=== PATIENT | male | born 1980 | race American Indian/Alaskan Native ===

== ENCOUNTER 2016-06-24 17:04 | Emergency (ER) | payer MEDICAID, OTHER ==
[2016-06-24 17:23] VITALS: BP 140/76
--- NOTE | 2016-06-24 18:10 | EDM.PDOC ---
[id number] 4d LEFT LEG INJURY, FELL OVER Time Seen by Provider: 06/24/16 18:00 Source: Reports: Patient, Family History Limitations: Reports: No limitations - History of Present Illness INITIAL COMMENTS - FREE TEXT/NARRATIVE: 35-year-old otherwise healthy male was standing on a chair when it broke in his left leg went through the chair and he sustained trauma to the anterior aspect of the lower leg. He is having difficulty ambulating, he's had some anterior swelling and some significant pain radiating from the foot to the anterior knee. There is superficial abrasions and some early bruising and swelling. He is concerned he may have "broken my leg". No other injury. Occurred When: just prior to arrival Occurred Where: home Method of Injury: direct blow, fall Severity: mild Pain/Injury Location: Reports: lower extremity, left Consciousness: Reports: no loss of consciousness Associated Symptoms: Reports: denies other symptoms Allergies/ADRs: Allergies No Known Allergies Allergy (Verified 06/24/16 17:22) Home Medications: Ambulatory Orders Albuterol [Proventil HFA] 2 puff IN BID 06/24/16 [Confirmed 06/24/16] FLUoxetine [PROzac] 20 mg PO DAILY 06/24/16 [Confirmed 06/24/16] Pantoprazole [Protonix] 40 mg PO DAILY 06/24/16 [Confirmed 06/24/16] traMADol [Take Home: traMADol 50 MG, 4 Tab Pack] 50 mg PO DAILY PRN 06/24/16 [ Confirmed 06/24/16] Past Medical History Gastrointestinal History: Reports: GERD Musculoskeletal History: Reports: Fracture Neurological History: Reports: TIA Psychiatric History: Reports: Anxiety, Depression - Infectious Disease History Infectious Disease History: Reports: Chicken pox - Past Surgical History GI Surgical History: Reports: Polypectomy Social & Family History - Tobacco Use Smoking Status *Q: Current Every Day Smoker Years of Tobacco use: 20 Packs/Tins Daily: 1 Second Hand Smoke Exposure: No - Caffeine Use Caffeine Use: Reports: Soda - Alcohol Use Days Per Week of Alcohol Use: 0 - Recreational Drug Use Recreational Drug Use: No Recreational Drug Type: Reports: Marijuana/Hashish Recreational Drug Use Frequency: Daily Review of Systems - Review of Systems Review Of Systems: See Below Constitutional: Denies: fever Respiratory: Reports: No Symptoms Cardiovascular: Reports: no symptoms Skin: Reports: bruising, other (Left arguelles abrasion) Neurological: Reports: No Symptoms Psychiatric: Reports: no symptoms Trauma Exam - Physical Exam Exam: See Below Exam Limited By: No limitations General Appearance: Reports: alert, no apparent distress Head: Reports: atraumatic Respiratory Exam: Reports: no respiratory distress Extremities: Reports: other (Exam is otherwise limited to the left lower leg. He has an abrasion along the anterior arguelles, some slight swelling and some early bruising over the lower anterior arguelles. No crepitus or deformity) Course - Vital Signs Last Recorded V/S: Last Vital Signs Temp 98.5 F 06/24/16 17:28 Pulse 83 06/24/16 17:28 Resp 20 06/24/16 17:28 BP 140/76 06/24/16 17:28 Pulse Ox 97 06/24/16 17:28 - Orders/Labs/Meds Orders: Active Orders 24 hr Category Date Time Status Tibia Fibula Lt [CR] Stat Exams 06/24/16 17:59 Taken DME for Discharge [COMM] Stat Oth 06/24/16 18:26 Ordered - Re-Assessments/Exams Free Text/Narrative Re-Assessment/Exam: 06/24/16 18:12 An x-ray of the left tib-fib was obtained. 06/24/16 18:27 X-ray was normal. Patient's tetanus status is current. A four-inch Ron wrap was applied to the lower leg to support him he was fitted with crutches since he was having difficulty with ambulation. This injury should improve rapidly but he can recheck in 5-7 days if not improving satisfactorily. Departure - Departure Time of Disposition: 18:46 Disposition: Home, Self-Care 01 Condition: good Clinical Impression: Contusion of lower leg, left Qualifiers: Encounter type: initial encounter Qualified Code(s): S80.12XA - Contusion of left lower leg, initial encounter Instructions: Contusion Referrals: Christin Cisneros NP [Primary Care Provider] - Forms: ED Department Discharge Care Plan Goals: Wrap leg for comfort, cold compresses or ice 20 minutes an hour and elevation would help for the first couple of days. Use crutches for the first day or two but ambulate as soon as possible and if still unable to ambulate without crutches in 5-6 days recheck with your regular doctor. Ibuprofen or naproxen will help. - My Orders Last 24 Hours: My Active Orders 06/24/16 17:59 Tibia Fibula Lt [CR] Stat 06/24/16 18:26 DME for Discharge [COMM] Stat - Assessment/Plan Last 24 Hours: My Active Orders 06/24/16 17:59 Tibia Fibula Lt [CR] Stat 06/24/16 18:26 DME for Discharge [COMM] Stat
--- NOTE | 2016-06-25 09:35 | CR ---
Tibia Fibula Lt HISTORY: Injury. COMPARISON: None FINDINGS: No fracture or bony destructive process seen. Impression: Negative left tibia and fibula.
== END 2016-06-24 18:46 | disposition home or self-care (01) ==
LOC: JP.ED 17:04
DX: S80.12XA Contusion of left lower leg, initial encounter (principal); F17.210 Nicotine dependence, cigarettes, uncomplicated; K21.9 Gastro-esophageal reflux disease without esophagitis; F41.8 Other specified anxiety disorders; Z79.899 Other long term (current) drug therapy; W07.XXXA Fall from chair, initial encounter
CPT/HCPCS: 73590-26-LT; 73590-LT; 99282; 99284

== ENCOUNTER 2016-08-31 22:03 | Emergency (ER) | payer MEDICAID, OTHER ==
[2016-08-31 22:21] VITALS: BP 129/70
--- NOTE | 2016-08-31 23:05 | EDM.PDOC ---
[id number]: COUGH,CHEST AND HEAD HURTS Time Seen by Provider: 08/31/16 22:30 Source of Information: Reports: Patient, Family History Limitations: Reports: No Limitations - History of Present Illness INITIAL COMMENTS - FREE TEXT/NARRATIVE: 36-year-old male with cough, nasal congestion, left-sided chest discomfort with coughing, headache and generalized malaise for the past 3 days. Possible intermittent fevers but none at this time. No significant shortness of breath. Onset: Gradual (Over 4 days) throat and chest Pain Score (Numeric/FACES): 8 - Related Data Allergies Allergy/AdvReac Type Severity Reaction Status Date / Time No Known Allergies Allergy Verified 08/31/16 22:24 Home Meds: Home Meds Albuterol [Proventil HFA] 2 puff IN BID 06/24/16 [History] Pantoprazole [ProTONIX] 40 mg PO DAILY 06/24/16 [History] traMADol [Take Home: traMADol 50 MG, 4 Tab Pack] 50 mg PO DAILY PRN 06/24/16 [ History] Past Medical History Respiratory History: Reports: Asthma Gastrointestinal History: Reports: GERD Musculoskeletal History: Reports: Fracture Neurological History: Reports: TIA Psychiatric History: Reports: Anxiety, Depression - Infectious Disease History Infectious Disease History: Reports: Chicken Pox - Past Surgical History GI Surgical History: Reports: Polypectomy Social & Family History - Tobacco Use Smoking Status *Q: Current Every Day Smoker Years of Tobacco use: 20 Packs/Tins Daily: 0.5 Second Hand Smoke Exposure: Yes - Caffeine Use Caffeine Use: Reports: None - Alcohol Use Days Per Week of Alcohol Use: 0 - Recreational Drug Use Recreational Drug Use: No Recreational Drug Type: Reports: Marijuana/Hashish Recreational Drug Use Frequency: Daily ED ROS GENERAL - Review of Systems Review Of Systems: See Below Constitutional: Reports: Malaise HEENT: Reports: Rhinitis (Persistent rhinitis, blowing his nose), Throat Pain ( Scratching) Respiratory: Reports: Wheezing, Cough. Denies: Shortness of Breath, Sputum Cardiovascular: Reports: No Symptoms GI/Abdominal: Denies: Nausea, Vomiting Musculoskeletal: Reports: Muscle Pain (Generalized) Skin: Reports: Other (Been treated for a rash on his hands) ED EXAM, GENERAL - Physical Exam Exam: See Below Exam Limited By: No Limitations General Appearance: Alert, No Apparent Distress Eye Exam: Bilateral Eye: Normal Inspection Ears: Normal TMs Throat/Mouth: Normal Inspection, Normal Oropharynx Respiratory/Chest: No Respiratory Distress, Wheezing (A few expiratory wheezes are heard with some rales when coughing bilaterally) Course - Vital Signs Last Recorded V/S: Last Vital Signs Temp 97.7 F 08/31/16 22:23 Pulse 92 08/31/16 22:23 Resp 16 08/31/16 22:23 BP 129/70 08/31/16 22:23 Pulse Ox 95 08/31/16 22:23 - Orders/Labs/Meds Orders: Active Orders 24 hr Category Date Time Status Chest 2V [CR] Routine Exams 08/31/16 22:39 Taken - Re-Assessments/Exams Free Text/Narrative Re-Assessment/Exam: 08/31/16 23:03 A two-view chest x-ray was obtained which was negative. Explained to the patient this is a viral bronchitis, however we can treat with Robitussin-AC along with Tessalon Perles. Antibiotics will not help. I also wrote him a note for work tomorrow. He should recheck in 2-3 days if not improving satisfactorily. Departure - Departure Time of Disposition: 23:12 Disposition: Home, Self-Care 01 Condition: good Clinical Impression: Viral URI with cough - Discharge Information Instructions: Acute Bronchitis, [id number] Referrals: PCP,None [Primary Care Provider] - Forms: ED Department Discharge Care Plan Goals: Use cough medicine as prescribed. Ibuprofen or naproxen will help as well. Rest the next 1 to 2 days and recheck in 2-3 days if not improving satisfactorily. - My Orders Last 24 Hours: My Active Orders 08/31/16 22:39 Chest 2V [CR] Routine - Assessment/Plan Last 24 Hours: My Active Orders 08/31/16 22:39 Chest 2V [CR] Routine
--- NOTE | 2016-09-01 09:37 | CR ---
Chest 2V FINDINGS: The heart and vascular structures are normal in appearance. No infiltrates or effusions ar e demonstrated. The skeletal structures are unremarkable. IMPRESSION: Negative exam.
== END 2016-08-31 23:14 | disposition home or self-care (01) ==
LOC: JP.ED 22:03
DX: J06.9 Acute upper respiratory infection, unspecified (principal); J45.909 Unspecified asthma, uncomplicated; K21.9 Gastro-esophageal reflux disease without esophagitis; F17.210 Nicotine dependence, cigarettes, uncomplicated; Z79.899 Other long term (current) drug therapy; Z98.890 Other specified postprocedural states
CPT/HCPCS: 71020; 71020-26; 99283; 99284

== ENCOUNTER 2016-09-19 18:43 | Emergency (ER) | payer MEDICAID ==
[2016-09-19 19:35] VITALS: BP 117/71
[2016-09-19] MEDS ORDERED: cefTRIAXone 500 MG, Lidocaine 1% 1 ML IM ONE ×2 (20:43)
--- NOTE | 2016-09-19 21:18 | EDM.PDOC ---
ED HPI GENERAL MEDICAL PROBLEM - General Chief Complaint: Genitourinary Problem Stated Complaint: STD CHECK Time Seen by Provider: 09/19/16 20:22 Source of Information: Reports: Patient History Limitations: Reports: No Limitations - History of Present Illness INITIAL COMMENTS - FREE TEXT/NARRATIVE: This gentleman comes in with his female partner for STD testing. He started noticing a yellow urethral discharge yesterday. He's not complaining of any kind of pain. His partner denies any complaints. - Related Data Allergies Allergy/AdvReac Type Severity Reaction Status Date / Time No Known Allergies Allergy Verified 08/31/16 22:24 Home Meds: Home Meds Albuterol [Proventil HFA] 2 puff IN BID 06/24/16 [History] Pantoprazole [ProTONIX] 40 mg PO DAILY 06/24/16 [History] traMADol [Take Home: traMADol 50 MG, 4 Tab Pack] 50 mg PO DAILY PRN 06/24/16 [ History] Cetirizine [ZyrTEC] 09/19/16 [History] Hydrocortisone [Proctosol-HC] 09/19/16 [History] Sertraline [Zoloft] 09/19/16 [History] Past Medical History - Past Health History Medical/Surgical History: Denies Medical/Surgical History Respiratory History: Reports: Asthma Gastrointestinal History: Reports: GERD Musculoskeletal History: Reports: Fracture Neurological History: Reports: TIA Psychiatric History: Reports: Anxiety, Depression - Infectious Disease History Infectious Disease History: Reports: Chicken Pox - Past Surgical History GI Surgical History: Reports: Polypectomy Social & Family History - Tobacco Use Smoking Status *Q: Current Every Day Smoker Years of Tobacco use: 20 Packs/Tins Daily: 1 Second Hand Smoke Exposure: Yes - Caffeine Use Caffeine Use: Reports: None - Alcohol Use Days Per Week of Alcohol Use: 0 - Recreational Drug Use Recreational Drug Use: No Recreational Drug Type: Reports: Marijuana/Hashish Recreational Drug Use Frequency: Daily ED ROS GENERAL - Review of Systems Review Of Systems: ROS reveals no pertinent complaints other than HPI. ED EXAM, RENAL/ - Physical Exam Exam: See Below Exam Limited By: No Limitations General Appearance: Alert, WD/WN, No Apparent Distress (Male) Exam: Urethral Discharge (Yellow urethral discharge typical of GC) Course - Vital Signs Last Recorded V/S: Last Vital Signs Temp 36.4 C 09/19/16 19:34 Pulse 71 09/19/16 19:34 Resp 14 09/19/16 19:34 BP 117/71 09/19/16 19:34 Pulse Ox 96 09/19/16 19:34 - Orders/Labs/Meds Orders: Active Orders 24 hr Category Date Time Status CHLAMYDIA,AND GC BY APTIMA Routine Lab 09/19/16 20:43 Ordered Meds: Medications Discontinued Medications Generic Name Dose Route Start Last Admin Trade Name Steph PRN Reason Stop Dose Admin Ceftriaxone Sodium 500 mg/ 0 mg 09/19/16 20:43 09/19/16 21:10 Lidocaine HCl 1 ml IM 09/19/16 20:44 1 inj ONETIME ONE Administration - Re-Assessments/Exams Free Text/Narrative Re-Assessment/Exam: 09/19/16 21:15 Urethral swab was done this will be sent for GC and Chlamydia. Patient received 500 mg Rocephin IM. His partner also received this. Departure - Departure Time of Disposition: 21:16 Disposition: Home, Self-Care 01 Condition: Fair Clinical Impression: Gonorrhea in male - Discharge Information Forms: ED Department Discharge Additional Instructions: Most likely the discharge is brought gonorrhea. You received an injection of Rocephin which is the antibiotic for gonorrhea. You are also being treated for an associated infection with chlamydia. You will need to take the antibiotic doxycycline 100 mg twice daily for 10 days. You will need to follow-up at your primary care clinic in about 2 weeks for repeat testing. Your partner is also being treated. If you have had any sexual contact with other people they will also need to be treated. - My Orders Last 24 Hours: My Active Orders 09/19/16 20:43 CHLAMYDIA,AND GC BY APTIMA Routine - Assessment/Plan Last 24 Hours: My Active Orders 09/19/16 20:43 CHLAMYDIA,AND GC BY APTIMA Routine
== END 2016-09-19 21:42 | disposition home or self-care (01) ==
LOC: JP.ED 18:43
DX: A54.9 Gonococcal infection, unspecified (principal); J45.909 Unspecified asthma, uncomplicated; K21.9 Gastro-esophageal reflux disease without esophagitis; F41.9 Anxiety disorder, unspecified; F17.210 Nicotine dependence, cigarettes, uncomplicated; F32.9 Major depressive disorder, single episode, unspecified; Z98.890 Other specified postprocedural states; Z79.899 Other long term (current) drug therapy
CPT/HCPCS: 87491; 87591; 96372; 99284; J0696; 99283

== ENCOUNTER 2020-02-22 12:34 | Emergency (ER) | payer MEDICAID ==
[2020-02-22 12:52] VITALS: BP 137/73; PULSE 89
[2020-02-22] MEDS ORDERED: Sodium Chloride 0.9% 10 ML Syringe FLUSH PRN ×2 (13:29)
[2020-02-22] MEDS ORDERED: fentaNYL 100 MCG/2 ML SDV IVPUSH ONE (13:31)
[2020-02-22] MEDS ORDERED: Ondansetron 4 MG/2 ML SDV IVPUSH ONE (13:31)
--- NOTE | 2020-02-22 13:34 | EDM.PDOC ---
ED HPI GENERAL MEDICAL PROBLEM - General Chief Complaint: Abdominal Pain Stated Complaint: STOMACH PAIN Time Seen by Provider: 02/22/20 12:56 Source of Information: Reports: Patient, RN Notes Reviewed History Limitations: Reports: No Limitations - History of Present Illness INITIAL COMMENTS - FREE TEXT/NARRATIVE: 39-year-old gentleman presents emergency department a complaint of abdominal pain, states abdominal pain started this morning his primary right lower quadrant he has no history of abdominal surgeries does have a history of colonoscopy last year with a polypectomy he complains of bright red blood in the stool as well as some nausea. - Related Data Allergies Allergy/AdvReac Type Severity Reaction Status Date / Time No Known Allergies Allergy Verified 08/31/16 22:24 Home Meds: Home Meds Albuterol [Proventil HFA] 2 puff IN BID 06/24/16 [History] buPROPion HCL [Wellbutrin Xl] 150 mg PO BID 02/22/20 [History] hydrOXYzine HCL [hydrOXYzine] 25 mg PO BEDTIME 02/22/20 [History] Past Medical History Respiratory History: Reports: Asthma Gastrointestinal History: Reports: GERD Musculoskeletal History: Reports: Fracture Neurological History: Reports: TIA Psychiatric History: Reports: Anxiety, Depression - Infectious Disease History Infectious Disease History: Reports: Chicken Pox - Past Surgical History GI Surgical History: Reports: Colonoscopy, Polypectomy Other GI Surgeries/Procedures: mar 03 2016 polypectomy Social & Family History - Caffeine Use Caffeine Use: Reports: Coffee - Recreational Drug Use Recreational Drug Type: Reports: Marijuana/Hashish ED ROS GENERAL - Review of Systems Review Of Systems: See Below Constitutional: Reports: No Symptoms Respiratory: Reports: No Symptoms Cardiovascular: Reports: No Symptoms GI/Abdominal: Reports: Abdominal Pain, Bloody Stool, Nausea : Reports: No Symptoms ED EXAM, GI/ABD - Physical Exam Exam: See Below Exam Limited By: No Limitations General Appearance: Alert, WD/WN, No Apparent Distress Respiratory/Chest: No Respiratory Distress, Lungs Clear, Normal Breath Sounds, No Accessory Muscle Use, Chest Non-Tender Cardiovascular: Regular Rate, Rhythm, No Murmur GI/Abdominal Exam: Soft, No Distention, Tender (Left lower quadrant), Abnormal Bowel Sounds (Bowel sounds are decreased) Course - Vital Signs Last Recorded V/S: Last Vital Signs Temp 96.8 F L 02/22/20 12:51 Pulse 89 02/22/20 12:51 Resp 16 02/22/20 12:51 BP 137/73 02/22/20 12:51 Pulse Ox 96 02/22/20 12:51 - Orders/Labs/Meds Orders: Active Orders 24 hr Category Date Time Status Peripheral IV Care [RC] . DIRECTED Care 02/22/20 13:30 Active UA W/MICROSCOPIC [URIN] Urgent Lab 02/22/20 13:29 Ordered Sodium Chloride 0.9% [Normal Saline] 85 ml Med 02/22/20 13:45 Active IV ASDIRECTED Sodium Chloride 0.9% [Saline Flush] Med 02/22/20 13:29 Active 10 ml FLUSH ASDIRECTED PRN Sodium Chloride 0.9% [Saline Flush] Med 02/22/20 13:29 Active 10 ml FLUSH ASDIRECTED PRN Peripheral IV Insertion Adult [OM.PC] Urgent Oth 02/22/20 13:29 Ordered Medication Orders Sodium Chloride (Normal Saline) 85 mls @ 3.5 mls/sec IV ASDIRECTED JAMES Last Admin: 02/22/20 13:53 Dose: 3 mls/sec Documented by: SPENCER Sodium Chloride (Saline Flush) 10 ml FLUSH ASDIRECTED PRN PRN Reason: Keep Vein Open Last Admin: 02/22/20 14:04 Dose: 10 ml Documented by: YENNY Sodium Chloride (Saline Flush) 10 ml FLUSH ASDIRECTED PRN PRN Reason: Keep Vein Open Last Admin: 02/22/20 14:07 Dose: 10 ml Documented by: [id number] Labs: Laboratory Tests 02/22/20 02/22/20 02/22/20 Range/Units 13:45 13:45 13:45 WBC 8.2 (4.5-11.0) K/uL RBC 5.42 (4.30-5.90) M/uL Hgb 16.3 H (12.0-15.0) g/dL Hct 46.2 (40.0-54.0) % MCV 85 (80-98) fL MCH 30 (27-31) pg MCHC 35 (32-36) % Plt Count 233 (150-400) K/uL Neut % (Auto) 68 H (36-66) % Lymph % (Auto) 24 (24-44) % [place] % (Auto) 7 H (2-6) % Eos % (Auto) 1 L (2-4) % Baso % (Auto) 1 (0-1) % Sodium 137 L (140-148) mmol/L Potassium 4.0 (3.6-5.2) mmol/L Chloride 103 (100-108) mmol/L Carbon Dioxide 24 (21-32) mmol/L Anion Gap 14.0 (5.0-14.0) mmol/L BUN 15 (7-18) mg/dL Creatinine 1.1 (0.8-1.3) mg/dL Est Cr Clr Drug Dosing 94.02 mL/min Estimated GFR (MDRD) > 60 (>60) Glucose 101 (74-106) mg/dL Lactic Acid 1.0 (0.4-2.0) mmol/L Calcium 8.8 (8.5-10.1) mg/dL Total Bilirubin 0.5 (0.2-1.0) mg/dL AST 22 (15-37) U/L ALT 23 (12-78) U/L Alkaline Phosphatase 55 (46-116) U/L Total Protein 7.6 (6.4-8.2) g/dL Albumin 3.9 (3.4-5.0) g/dL Globulin 3.7 H (2.3-3.5) g/dL Albumin/Globulin Ratio 1.1 L (1.2-2.2) Lipase 127 (73-393) U/L Meds: Medications Generic Name Dose Route Start Last Admin Trade Name Freq PRN Reason Stop Dose Admin Sodium Chloride 85 mls @ 3.5 mls/sec 02/22/20 13:45 02/22/20 13:53 Normal Saline IV 3 mls/sec ASDIRECTED JAMES Administration Sodium Chloride 10 ml 02/22/20 13:29 02/22/20 14:04 Saline Flush FLUSH 10 ml ASDIRECTED PRN Administration Keep Vein Open Sodium Chloride 10 ml 02/22/20 13:29 02/22/20 14:07 Saline Flush FLUSH 10 ml ASDIRECTED PRN Administration Keep Vein Open Discontinued Medications Generic Name Dose Route Start Last Admin Trade Name Freq PRN Reason Stop Dose Admin Fentanyl 50 mcg 02/22/20 13:31 02/22/20 14:02 Sublimaze IVPUSH 02/22/20 13:32 50 mcg ONETIME ONE Administration Iopamidol 150 ml 02/22/20 13:37 02/22/20 13:53 Isovue-300 (61%) IV 02/22/20 13:38 150 ml . DIRECTED ONE Administration Ondansetron HCl 4 mg 02/22/20 13:31 02/22/20 14:02 Zofran IVPUSH 02/22/20 13:32 4 mg ONETIME ONE Administration Departure - Departure Time of Disposition: 15:34 Disposition: Home, Self-Care 01 Condition: Fair Clinical Impression: Bloody stool Abdominal pain Qualifiers: Abdominal location: left upper quadrant Qualified Code(s): R10.12 - Left upper quadrant pain - Discharge Information Instructions: Abdominal Pain, Adult, Bkyj-ag-Clsm Referrals: Christin Cisneros I [employer]E [employer] ADJUSTER [Primary Care Provider] - Forms: ED Department Discharge Additional Instructions: Use ibuprofen for baseline pain control use hydrocodone for breakthrough pain, use Zofran as needed for nausea and vomiting symptoms, you are set up for colonoscopy on Thursday morning return to the emergency department for worsening of symptoms Sepsis Event Note (ED) - Evaluation Sepsis Screening Result: No Definite Risk - Focused Exam Vital Signs: Vital Signs Temp Pulse Resp BP Pulse Ox 02/22/20 12:51 96.8 F L 89 16 137/73 96 - My Orders Last 24 Hours: My Active Orders 02/22/20 13:29 UA W/MICROSCOPIC [URIN] Urgent Sodium Chloride 0.9% [Saline Flush] 10 ml FLUSH ASDIRECTED PRN Sodium Chloride 0.9% [Saline Flush] 10 ml FLUSH ASDIRECTED PRN Peripheral IV Insertion Adult [OM.PC] Urgent 02/22/20 13:30 Peripheral IV Care [RC] . DIRECTED 02/22/20 13:45 Sodium Chloride 0.9% [Normal Saline] 85 ml IV ASDIRECTED - Assessment/Plan Last 24 Hours: My Active Orders 02/22/20 13:29 UA W/MICROSCOPIC [URIN] Urgent Sodium Chloride 0.9% [Saline Flush] 10 ml FLUSH ASDIRECTED PRN Sodium Chloride 0.9% [Saline Flush] 10 ml FLUSH ASDIRECTED PRN Peripheral IV Insertion Adult [OM.PC] Urgent 02/22/20 13:30 Peripheral IV Care [RC] . DIRECTED 11/25/20 13:45 Sodium Chloride 0.9% [Normal Saline] 85 ml IV ASDIRECTED Plan: Assessment Acuity = acute Site and laterality = abdominal pain with bright red blood per rectum Etiology = unknown suspicious for diverticular disease Manifestations = none Location of injury = Home Lab values = CBC unremarkable hemoglobin 16.[address] scan of the abdomen shows no acute process Plan Call discussed case with Dr. Cisneros at 1530 he kindly agreed to a colonoscopy plan is for Thursday next week prescription written for hydrocodone 5/325 1 tab p.o. 3 times daily as needed total #10 and Zofran 1 tab p.o. 3 times daily 4 mg ODT total of 5 return to the emergency department worsening symptoms otherwise follow-up for colonoscopy on Thursday This note was dictated using [employer] voice recognition software please call with any questions on syntax or grammar.
[2020-02-22] MEDS ORDERED: Iopamidol 612 MG/ML 150 ML Bottle IV ONE (13:37)
--- NOTE | 2020-02-22 14:34 | CT ---
Abdomen Pelvis w Cont CLINICAL HISTORY: Left lower quadrant pain COMPARISON: None. TECHNIQUE: Transverse scans were obtained from the base of the lungs to the pubic symphysis no oral contrast was given and IV infusion of contrast.Auto dosage reduction and iterative reconstruction techniques employed. FINDINGS: The lung bases are clear. The liver shows no mass or biliary dilatation. The gallbladder has a normal configuration. The spleen has a normal size and shape. The pancreas shows no mass or inflammatory change. The adrenal glands appear normal bilaterally . The kidneys show no mass, stones or hydronephrosis. The ureters have a normal course and caliber. The bladder has a normal contour. The aorta has a normal contour. There is no suspicious retroperitoneal adenopathy. The small intestinal configuration is nonacute the appendix has a normal contour. There is some sigmoid diverticulosis without evidence of diverticulitis. The abdominal pelvic fat planes and low pelvic side haddad are well demarcated. IMPRESSION: Mild diverticulosis without evidence diverticulitis No mass, suspicious adenopathy or inflammatory change MTDD
== END 2020-02-22 16:04 | disposition home or self-care (01) ==
LOC: JP.ED 12:34
DX: K92.1 Melena (principal); R10.12 Left upper quadrant pain; J45.909 Unspecified asthma, uncomplicated; F41.9 Anxiety disorder, unspecified; F32.9 Major depressive disorder, single episode, unspecified; Z90.49 Acquired absence of other specified parts of digestive tract; Z86.73 Personal history of transient ischemic attack (TIA), and cerebral infarction without residual deficits; Z79.899 Other long term (current) drug therapy
CPT/HCPCS: 36415; 74177; 80053; 83605; 83690; 85025; 87635; 96374; 96375; 99284; J2405; J3010; Q9967; U0002; U0003

== ENCOUNTER 2020-02-27 05:36 | Day surgery (SDC) | payer MEDICAID ==
[2020-02-27] MEDS ORDERED: Dextrose 5%-Lactated Ringers 1,000 ML IV SCH (06:30)
[2020-02-27] MEDS ORDERED: fentaNYL 100 MCG/2 ML SDV ONE (07:13)
[2020-02-27] MEDS ORDERED: Midazolam 1 MG/ML 2 ML SDV ONE (07:13)
[2020-02-27] MEDS ORDERED: Propofol 200 MG/20 ML SDV ONE ×2 (07:13→07:44)
[2020-02-27 08:42] VITALS: BP 134/73; PULSE 67
--- NOTE | 2020-03-05 09:18 | OR ---
DATE OF PROCEDURE: 02/27/2020 SURGEON: Pancho Cisneros MD PREOPERATIVE DIAGNOSES: 1. History of recent rectal bleeding. 2. History of colon polyps. POSTOPERATIVE DIAGNOSES: 1. A single small polyp involving the sigmoid colon. 2. Excoriated hemorrhoids (likely source of recent rectal bleeding). OPERATIVE PROCEDURE: Flexible colonoscopy with polypectomy by snare technique. ANESTHESIA: IV sedation. INDICATION FOR PROCEDURE: This is a 39-year-old presenting with some episodic rectal bleeding. He does have a history of previous colon polyps. Plan is to proceed with flexible colonoscopy with biopsies and/or polypectomy as indicated. Potential risks of the procedure including bleeding and perforation were discussed, and the patient wishes to proceed. DETAILS OF PROCEDURE: The patient was taken to the operative room and placed in a left lateral decubitus position. IV sedation was administered, after which the initial digital rectal exam was performed and was unremarkable. Colonoscope was passed into the rectum with retroflexion revealing some quite excoriated hemorrhoidal columns. No blood or bleeding was seen and these certainly would be candidates for intermittent episodes of bleeding. The scope was eventually passed to the cecum. The prep was quite good with only a small amount of liquid stool was present. A single small polyp measuring around 3 mm was located in the sigmoid colon, 25 cm from the dentate line. This was encircled with a snare and excised by means of cautery snare technique and sent for histologic evaluation. Good hemostasis at the polyp site was seen and the procedure then concluded. The patient was taken to the recovery room in satisfactory condition. Recommendation would be to repeat the colonoscopy in 3 years. If he does develop significant ongoing bleeding, a surgical consultation for possible hemorrhoid banding would be appropriate. Pancho Cisneros MD /[id number]
== END 2020-02-27 09:23 | disposition home or self-care (01) ==
LOC: JP.SDS 05:36
PROVIDERS: ATTEND Surgery
DX: K63.5 Polyp of colon (principal); K64.9 Unspecified hemorrhoids; J45.909 Unspecified asthma, uncomplicated; F32.9 Major depressive disorder, single episode, unspecified; E66.9 Obesity, unspecified; Z68.30 Body mass index [BMI] 30.0-30.9, adult
CPT/HCPCS: 88305; J2250; J2704; J3010; J7121

== ENCOUNTER 2020-04-18 07:41 | Emergency (ER) | payer MEDICAID ==
[2020-04-18 07:51] VITALS: BP 120/72; PULSE 84
--- NOTE | 2020-04-18 08:33 | EDM.PDOC ---
ED HPI GENERAL MEDICAL PROBLEM - General Chief Complaint: Abdominal Pain Stated Complaint: L SIDED ABD PAIN Time Seen by Provider: 04/18/20 08:00 Source of Information: Reports: Patient, RN, RN Notes Reviewed History Limitations: Reports: No Limitations - History of Present Illness INITIAL COMMENTS - FREE TEXT/NARRATIVE: 39-year-old male presents complaining of left lower quadrant pain intermittently and into his left testicle area for the last 2 weeks. He has the pain every day and is there perhaps half the time. The pain starts in the left lower quadrant and then acutely shoots down into the left testicle. It is moderately severe in nature but he is able to continue to work and function with the pain. Nothing he can do to make it worse nor to make it go away. He has some nausea without vomiting. He does have loose stool but this has been persistent for many years. He does note that he has had blood on the surface of the stool and mixed in the water intermittently over the last 2 weeks and he noted yesterday that there was redness in the water as well. This is similar to the episode he had in January some 2 or 3 months ago at which time he had a colonoscopy and polypectomy with Dr. Cisneros apparently noting also the presence of hemorrhoids. He apparently had the same thing about 5 years ago and now recurrent. No knowledge of whether there is any GI issues in the family. Denies any urinary symptoms. Onset: Gradual Duration: Day(s): Location: Reports: Abdomen Quality: Reports: Same as Previous Episode Severity: Moderate Improves with: Reports: None Worsens with: Reports: None Associated Symptoms: Reports: No Other Symptoms (See dictated note) Left Lower Abdomen Pain Score (Numeric/FACES): 7 - Related Data Allergies Allergy/AdvReac Type Severity Reaction Status Date / Time No Known Allergies Allergy Verified 02/27/20 06:00 Home Meds: Home Meds buPROPion HCL [Wellbutrin Xl] 300 mg PO DAILY 02/22/20 [History] Levalbuterol Tartrate [Xopenex Hfa] 2 puff INH DAILY PRN 02/24/20 [History] Past Medical History - Past Health History Medical/Surgical History: Denies Medical/Surgical History HEENT History: Reports: Hard of Hearing, Other (See Below) Other HEENT History: wears glasses Respiratory History: Reports: Asthma Gastrointestinal History: Reports: Chronic Constipation, Chronic Diarrhea, Colon Polyp, GERD, Hepatitis Musculoskeletal History: Reports: Fracture, Other (See Below) Other Musculoskeletal History: fx ribs, right hand Neurological History: Reports: TIA Psychiatric History: Reports: Anxiety, Depression Endocrine/Metabolic History: Reports: Obesity/BMI 30+ - Infectious Disease History Infectious Disease History: Reports: Chicken Pox, Hepatitis C - Past Surgical History GI Surgical History: Reports: Colonoscopy, Polypectomy Other GI Surgeries/Procedures: mar 03 2016 polypectomy Social & Family History - Tobacco Use Tobacco Use Status *Q: Current Every Day Tobacco User Years of Tobacco use: 25 Packs/Tins Daily: 0.5 - Caffeine Use Caffeine Use: Reports: Soda - Recreational Drug Use Recreational Drug Use: Yes Drug Use in Last 12 Months: Yes Recreational Drug Type: Reports: Marijuana/Hashish Recreational Drug Use Frequency: Socially ED ROS GENERAL - Review of Systems Review Of Systems: See Below Constitutional: Reports: No Symptoms HEENT: Reports: No Symptoms Respiratory: Reports: No Symptoms Cardiovascular: Reports: No Symptoms Endocrine: Reports: No Symptoms GI/Abdominal: Reports: Abdominal Pain, Bloody Stool : Reports: No Symptoms Musculoskeletal: Reports: No Symptoms Skin: Reports: No Symptoms Neurological: Reports: No Symptoms Psychiatric: Reports: No Symptoms Hematologic/Lymphatic: Reports: No Symptoms ED EXAM, GI/ABD - Physical Exam Exam: See Below Text/Narrative:: Alert cooperative male sitting on the gurney not appearing to be in any significant distress observed walking in with normal gait. General exam is reflected already. Abdominal exam shows mild tenderness on deep palpation in the left lower quadrant similar to where he has had discomfort on prior exams. No discomfort higher in the flank. He has mild tenderness in the inferior pole of the testicle but no inflammation or redness is noted. No sign of hernia noted. No masses are felt. His rectal exam does not show any external hemorrhoid evidence. However on palpation feels like he has internal hemorrhoids although I do not find blood on my inspection. Exam Limited By: No Limitations General Appearance: Alert, WD/WN Eyes: Bilateral: Normal Appearance, EOMI Ears: Normal External Exam, Normal TMs Nose: Normal Inspection Throat/Mouth: Normal Inspection Head: Atraumatic, Normocephalic Neck: Normal Inspection, Supple, Non-Tender, Full Range of Motion Respiratory/Chest: No Respiratory Distress, Lungs Clear, Normal Breath Sounds, No Accessory Muscle Use, Chest Non-Tender Cardiovascular: Regular Rate, Rhythm, No Edema, No JVD, No Murmur GI/Abdominal Exam: Normal Bowel Sounds, Soft (Male) Exam: No Hernia, Normal Inspection Back Exam: Normal Inspection Extremities: Normal Inspection, Normal Range of Motion, No Pedal Edema Neurological: Alert, Oriented, Normal Cognition, No Motor/Sensory Deficits Psychiatric: Normal Affect Skin Exam: Warm, Dry, Normal Color Lymphatic: No Adenopathy Course - Vital Signs Text/Narrative:: Patient with abdominal pain that is recurrent similar to what he is had in the past when he has had proven episodes of either polyps and/or hemorrhoids. Review of records shows that he had a CAT scan done in January a couple of months ago prior to his colonoscopy and was noted to have diverticulosis but no evidence of diverticulitis or other abnormalities. Call is placed to Dr. Cisneros to discuss further work-up at this juncture versus just a recurrent colonoscopy. White count chemistries were all normal in January. Positive GC noted in 2016 Patient denies any penile discharge or any dysuria and has normal sexual function he reports Dr. Cisneros suggest no further therapy at this juncture other than Anusol suppositories and follow-up with him next Thursday and the patient is still instructed and understands Last Recorded V/S: Last Vital Signs Temp 35.9 C L 04/18/20 07:56 Pulse 84 04/18/20 07:56 Resp 16 04/18/20 07:56 BP 120/72 04/18/20 07:56 Pulse Ox 98 04/18/20 07:56 - Orders/Labs/Meds Orders: Active Orders 24 hr Category Date Time Status CHLAMYDIA/GC AMPLIFICATION Routine Lab 04/18/20 09:04 Received Sodium Chloride 0.9% [Normal Saline] 88 ml Med 04/18/20 09:15 Active IV ASDIRECTED Medication Orders Sodium Chloride (Normal Saline) 88 mls @ 3.5 mls/sec IV ASDIRECTED JAMES Stop: 04/18/20 14:00 Last Admin: 04/18/20 09:14 Dose: 3.5 mls/sec Documented by: [email or web address] Labs: Laboratory Tests 04/18/20 04/18/20 04/18/20 Range/Units 09:08 09:09 09:09 WBC 7.2 (4.5-11.0) K/uL RBC 5.77 (4.30-5.90) M/uL Hgb 17.1 H (12.0-15.0) g/dL Hct 51.9 (40.0-54.0) % MCV 90 (80-98) fL MCH 30 (27-31) pg MCHC 33 (32-36) % Plt Count 265 (150-400) K/uL PT (9.5-12.0) sec INR (0.80-1.20) Sodium (140-148) mmol/L Potassium (3.6-5.2) mmol/L Chloride (100-108) mmol/L Carbon Dioxide (21-32) mmol/L Anion Gap (5.0-14.0) mmol/L BUN (7-18) mg/dL Creatinine (0.8-1.3) mg/dL Est Cr Clr Drug Dosing mL/min Estimated GFR (MDRD) (>60) Glucose (74-106) mg/dL Calcium (8.5-10.1) mg/dL Total Bilirubin (0.2-1.0) mg/dL AST (15-37) U/L ALT (12-78) U/L Alkaline Phosphatase (46-116) U/L C-Reactive Protein 0.06 (0.0-0.3) mg/dL Total Protein (6.4-8.2) g/dL Albumin (3.4-5.0) g/dL Globulin (2.3-3.5) g/dL Albumin/Globulin Ratio (1.2-2.2) Urine Color Yellow (YELLOW) Urine Appearance Slightly cloudy A (CLEAR) Urine pH 6.5 (5.0-8.0) Ur Specific [place] 1.025 (1.008-1.030) Urine Protein Negative (NEGATIVE) mg/dL Urine Glucose (UA) Negative (NEGATIVE) mg/dL Urine Ketones Negative (NEGATIVE) mg/dL Urine Occult Blood Negative (NEGATIVE) Urine Nitrite Negative (NEGATIVE) Urine Bilirubin Negative (NEGATIVE) Urine Urobilinogen 0.2 (0.2-1.0) EU/dL Ur Leukocyte Esterase Negative (NEGATIVE) Urine RBC Not seen (0-5) Urine WBC Not seen (0-5) Ur Epithelial Cells Rare Amorphous Sediment Not seen Urine Bacteria Not seen Urine Mucus Not seen 04/18/20 04/18/20 Range/Units 09:09 09:09 WBC (4.5-11.0) K/uL RBC (4.30-5.90) M/uL Hgb (12.0-15.0) g/dL Hct (40.0-54.0) % MCV (80-98) fL MCH (27-31) pg MCHC (32-36) % Plt Count (150-400) K/uL PT 24.1 H (9.5-12.0) sec INR 2.25 H (0.80-1.20) Sodium 140 (140-148) mmol/L Potassium 4.4 (3.6-5.2) mmol/L Chloride 106 (100-108) mmol/L Carbon Dioxide 25 (21-32) mmol/L Anion Gap 8.7 (5.0-14.0) mmol/L BUN 12 (7-18) mg/dL Creatinine 1.0 (0.8-1.3) mg/dL Est Cr Clr Drug Dosing 100.16 mL/min Estimated GFR (MDRD) > 60 (>60) Glucose 107 H (74-106) mg/dL Calcium 9.0 (8.5-10.1) mg/dL Total Bilirubin 0.5 (0.2-1.0) mg/dL AST 16 (15-37) U/L ALT 20 (12-78) U/L Alkaline Phosphatase 67 (46-116) U/L C-Reactive Protein (0.0-0.3) mg/dL Total Protein 7.8 (6.4-8.2) g/dL Albumin 3.8 (3.4-5.0) g/dL Globulin 4.0 H (2.3-3.5) g/dL Albumin/Globulin Ratio 1.0 L (1.2-2.2) Urine Color (YELLOW) Urine Appearance (CLEAR) Urine pH (5.0-8.0) Ur Specific [place] (1.008-1.030) Urine Protein (NEGATIVE) mg/dL Urine Glucose (UA) (NEGATIVE) mg/dL Urine Ketones (NEGATIVE) mg/dL Urine Occult Blood (NEGATIVE) Urine Nitrite (NEGATIVE) Urine Bilirubin (NEGATIVE) Urine Urobilinogen (0.2-1.0) EU/dL Ur Leukocyte Esterase (NEGATIVE) Urine RBC (0-5) Urine WBC (0-5) Ur Epithelial Cells Amorphous Sediment Urine Bacteria Urine Mucus Meds: Medications Generic Name Dose Route Start Last Admin Trade Name Steph PRN Reason Stop Dose Admin Sodium Chloride 88 mls @ 3.5 mls/sec 04/18/20 09:15 04/18/20 09:14 Normal Saline IV 04/18/20 14:00 3.5 mls/sec ASDIRECTED JAMES Administration Discontinued Medications Generic Name Dose Route Start Last Admin Trade Name Steph PRN Reason Stop Dose Admin Iopamidol 144 ml 04/18/20 09:05 04/18/20 09:14 Isovue-300 (61%) IV 04/18/20 09:06 144 ml ONETIME ONE Administration Sodium Chloride 10 ml 04/18/20 09:05 04/18/20 09:14 Saline Flush FLUSH 04/18/20 09:06 10 ml ONETIME ONE Administration Departure - Departure Time of Disposition: 10:49 Disposition: Home, Self-Care 01 Condition: Good Clinical Impression: Flank pain - Discharge Information Referrals: Christin Cisneros I [facility] [Primary Care Provider] - Forms: ED Department Discharge Additional Instructions: Use Anusol suppositories twice daily. Make appointment with Dr. Cisneros for next Thursday and return for new or worse symptoms Sepsis Event Note (ED) - Evaluation Sepsis Screening Result: No Definite Risk - Focused Exam Vital Signs: Vital Signs Temp Pulse Resp BP Pulse Ox 04/18/20 07:56 35.9 C L 84 16 120/72 98 04/18/20 07:49 35.9 C L 84 16 120/72 98 - My Orders Last 24 Hours: My Active Orders 04/18/20 09:04 CHLAMYDIA/GC AMPLIFICATION Routine 04/18/20 09:15 Sodium Chloride 0.9% [Normal Saline] 88 ml IV ASDIRECTED - Assessment/Plan Last 24 Hours: My Active Orders 04/18/20 09:04 CHLAMYDIA/GC AMPLIFICATION Routine 04/18/20 09:15 Sodium Chloride 0.9% [Normal Saline] 88 ml IV ASDIRECTED
[2020-04-18] MEDS ORDERED: Iopamidol 612 MG/ML 500 ML Multipack Bottle IV ONE (09:05)
[2020-04-18] MEDS: Sodium Chloride 0.9% 10 ML Syringe FLUSH ONE ×2 (09:09→09:14)
--- NOTE | 2020-04-18 09:40 | CT ---
Abdomen Pelvis w Cont CLINICAL HISTORY: Left lower quadrant pain and rectal bleeding COMPARISON: February 17, 2020. TECHNIQUE: Axial tomographic images are obtained from the dome of the diaphragm to the pubic symphysis without IV contrast enhancement. No oral contrast was used. The dosage reduction and iterative reconstruction techniques employed. FINDINGS: The lung bases are clear. The liver shows no mass or biliary dilatation. The gallbladder has a normal appearance. The spleen has a normal size and shape. The pancreas shows no mass or inflammatory change. The adrenal glands appear normal bilaterally. The kidneys show no mass, stones or hydronephrosis. There is a 1 cm cyst in the midpole of the right kidney. The ureters have a normal course and caliber. The aorta has a normal contour. There is no suspicious retroperitoneal adenopathy. There is suggestion of some mild irregular thickening of the terminal ileum. The there is some mucosal enhancement also suggested. The appendix has normal contour. There is some mild sigmoid diverticulosis without evidence of diverticulitis. Abdominal pelvic fat planes are well demarcated. IMPRESSION: Simple cyst right kidney Sigmoid diverticulosis without evidence of diverticulitis. There is some thickening of the terminal ileum suggested. There may also be some mild mucosal enhancement. A regional enteritis is not excluded
[2020-04-20 15:11] LABS: CHLAMYDIA TRACHOMATIS, NAA Negative (Negative); NEISSERIA GONORRHOEAE, NAA Negative (Negative)
== END 2020-04-18 11:01 | disposition home or self-care (01) ==
LOC: JP.ED 07:41
DX: R10.32 Left lower quadrant pain (principal); K92.1 Melena; J45.909 Unspecified asthma, uncomplicated; E66.9 Obesity, unspecified; Z68.31 Body mass index [BMI] 31.0-31.9, adult; Z72.0 Tobacco use
CPT/HCPCS: 36415; 74177; 80053; 81001; 85027; 85610; 86140; 87491; 87591; 99284; Q9967

== ENCOUNTER 2023-09-19 23:43 | Emergency (ER) | payer MEDICAID ==
[2023-09-19 23:51] VITALS: BP 121/79; PULSE 118
== END 2023-09-20 00:41 | disposition left against medical advice (07) ==
LOC: JP.ED 23:43
DX: Z53.21 Procedure and treatment not carried out due to patient leaving prior to being seen by health care provider (principal)

== ENCOUNTER 2024-09-03 18:52 | Emergency (ER) | payer MEDICAID ==
[2024-09-03 19:10] VITALS: BP 113/70; PULSE 89
== END 2024-09-03 19:30 | disposition home or self-care (01) ==
LOC: JP.ED 18:52
DX: M10.9 Gout, unspecified (principal); Z79.899 Other long term (current) drug therapy; Z86.73 Personal history of transient ischemic attack (TIA), and cerebral infarction without residual deficits
CPT/HCPCS: 99283